=== PATIENT | female | born 2000 | race Caucasian/White ===

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

== ENCOUNTER 2018-08-12 05:32 | Emergency (ER) | payer SELFPAY ==
[~2018-08-12] VITALS: Ht 157.5 cm; Wt 62.7 kg
[2018-08-12 06:00] LABS: URINE BILIRUBIN - DIPSTICK NEGATIVE (NEGATIVE); URINE BLOOD DIPSTICK TRACE-INTACT (NEGATIVE); URINE COLOR YELLOW; URINE GLUCOSE - DIPSTICK NEGATIVE (NEGATIVE); URINE KETONE NEGATIVE (NEGATIVE); URINE LEUK ESTERASE NEGATIVE (NEGATIVE); URINE NITRITE - DIPSTICK NEGATIVE (Negative); URINE PROTEIN - DIPSTICK NEGATIVE (NEG-TRACE); URINE SPECIFIC GRAVITY >=1.030; URINE UROBILINOGEN - DIPSTICK 0.2 E.U./dL (0.2)
[2018-08-12 06:01] LABS: HEMATOCRIT 40.3 % (37.0-47.0); HEMOGLOBIN 13.3 g/dl (12.0-16.0); IMMATURE GRANULOCYTES 1.6 % (0.0-5.0); MEAN CELL VOLUME 92.6 fL CALC (80.0-100.0); MEAN CORPUSCULAR HGB 30.6 pG CALC (26.0-32.0); NEUT# 5.69 thou/uL (2.00-7.15); RED BLOOD COUNT 4.35 mill/uL (4.20-5.60); RED CELL DISTRI WIDTH 12.5 % (11.5-15.5)
[2018-08-12 06:02] LABS: URINE CLARITY SL CLOUDY
[2018-08-12 06:11] LABS: ALBUMIN 4.5 g/dL (3.2-5.0); ALKALINE PHOSPHATASE 91 u/l (38-126); AMYLASE 65 u/l (30-110); ANION GAP 12 (6-22 (CALC)); BILIRUBIN, TOTAL 0.8 mg/dL (0.0-1.4); BUN 10 mg/dL (7-17); BUN/CREATININE RATIO 14 (12-20 (CALC)); CARBON DIOXIDE 28 mmol/l (22-30); CHLORIDE 105 mmol/l (95-108); CREATININE 0.7 mg/dL (0.5-1.0); GFR > 60 ML/MIN (>=60 (CALC)); GFR FOR AFR.AMER. > 60 ML/MIN (>=60 (CALC)); LIPASE 45 u/l (23-300); POTASSIUM 4.4 mmol/l (3.5-5.1); SGOT/AST 24 u/l (14-36); SODIUM 140 mmol/l (137-146); TOTAL PROTEIN 7.9 g/dL (6.3-8.2)
[2018-08-12] MEDS ORDERED: ONDANSETRON4 MG PO (07:01)
[2018-08-12] MEDS ORDERED: BENTYL10 MG PO (07:01)
[2018-08-12] MEDS ORDERED: PROTONIX40 M2 PO (07:01)
[2018-08-12 07:06] VITALS: BP 110/67
== END 2018-08-12 07:10 | disposition home or self-care (01) | DRG 392 ==
LOC: ED 05:32
PROVIDERS: Family Medicine
DX: R10.11 Right upper quadrant pain (principal); R11.0 Nausea

== ENCOUNTER 2020-03-11 07:09 | Emergency (ER) | payer SELFPAY ==
[~2020-03-11] VITALS: Ht 157.5 cm; Wt 68.0 kg
[~2020-03-11 07:09] MED LIST changes: +BENTYL10 MG PO; +PROTONIX40 M2 PO
[2020-03-11 07:48] LABS: HEMATOCRIT 40.3 % (37.0-47.0); HEMOGLOBIN 13.3 g/dl (12.0-16.0); IMMATURE GRANULOCYTES 0.6 % (0.0-5.0); MEAN CELL VOLUME 91.2 fL CALC (80.0-100.0); MEAN CORPUSCULAR HGB 30.1 pG CALC (26.0-32.0); NEUT# 5.36 thou/uL (2.00-7.15); RED BLOOD COUNT 4.42 mill/uL (4.20-5.60); RED CELL DISTRI WIDTH 12.7 % (11.5-15.5)
[2020-03-11 08:12] LABS: ALBUMIN 4.9 g/dL (3.2-5.0); ALKALINE PHOSPHATASE 63 u/l (38-126); AMYLASE 52 u/l (30-110); ANION GAP 13 (6-22 (CALC)); BUN 10 mg/dL (7-17); BUN/CREATININE RATIO 15 (12-20 (CALC)); CARBON DIOXIDE 24 mmol/l (22-30); CHLORIDE 103 mmol/l (95-108); CREATININE 0.7 mg/dL (0.5-1.0); GFR > 60 ML/MIN (>=60 (CALC)); GFR FOR AFR.AMER. > 60 ML/MIN (>=60 (CALC)); LIPASE 64 u/l (23-300); POTASSIUM 4.1 mmol/l (3.5-5.1); SGOT/AST 18 u/l (14-36); SODIUM 135 mmol/l (137-146); TOTAL PROTEIN 7.5 g/dL (6.3-8.2)
[2020-03-11 08:14] LABS: BILIRUBIN, TOTAL 0.4 mg/dL (0.0-1.4)
[2020-03-11 09:00] LABS: BETA-HCG, QUANT(RESULT NUMBER) 25364 mIU/mL
[2020-03-11 09:10] LABS: URINE BILIRUBIN - DIPSTICK NEGATIVE (NEGATIVE); URINE BLOOD DIPSTICK NEGATIVE (NEGATIVE); URINE COLOR YELLOW; URINE GLUCOSE - DIPSTICK NEGATIVE (NEGATIVE); URINE KETONE NEGATIVE (NEGATIVE); URINE LEUK ESTERASE NEGATIVE (NEGATIVE); URINE NITRITE - DIPSTICK NEGATIVE (Negative); URINE PROTEIN - DIPSTICK NEGATIVE (NEG-TRACE); URINE SPECIFIC GRAVITY 1.025; URINE UROBILINOGEN - DIPSTICK 0.2 E.U./dL (0.2)
[2020-03-11] MEDS ORDERED: ONDANSETRON4 MG PO (09:13)
[2020-03-11 09:20] VITALS: BP 134/84
== END 2020-03-11 09:35 | disposition home or self-care (01) | DRG 833 ==
LOC: ED 07:09
PROVIDERS: Emergency Medicine
DX: O21.9 Vomiting of pregnancy, unspecified (principal); Z3A.00 Weeks of gestation of pregnancy not specified

== ENCOUNTER 2020-08-09 13:54 | Emergency (ER) | payer SELFPAY ==
[~2020-08-09] VITALS: Ht 157.5 cm; Wt 160.0 kg
[2020-08-09] MEDS ORDERED: PNV PO (14:06)
[2020-08-09 14:42] LABS: HEMATOCRIT 37.1 % (37.0-47.0); HEMOGLOBIN 12.4 g/dl (12.0-16.0); IMMATURE GRANULOCYTES 0.8 % (0.0-5.0); MEAN CELL VOLUME 91.8 fL CALC (80.0-100.0); MEAN CORPUSCULAR HGB 30.7 pG CALC (26.0-32.0); MEAN CORPUSCULAR HGB CONC 33.4 g/dL CAL (32.0-36.0); NEUT# 8.89 thou/uL (2.00-7.15); RED BLOOD COUNT 4.04 mill/uL (4.20-5.60); RED CELL DISTRI WIDTH 12.5 % (11.5-15.5)
[2020-08-09 15:03] LABS: ANION GAP 10 (6-22 (CALC)); BUN 7 mg/dL (7-17); BUN/CREATININE RATIO 13 (12-20 (CALC)); CARBON DIOXIDE 20 mmol/l (22-30); CHLORIDE 105 mmol/l (95-108); CREATININE 0.5 mg/dL (0.5-1.0); GFR > 60 ML/MIN (>=60 (CALC)); GFR FOR AFR.AMER. > 60 ML/MIN (>=60 (CALC)); POTASSIUM 3.7 mmol/l (3.5-5.1); SODIUM 132 mmol/l (137-146)
[2020-08-09 15:53] LABS: URINE BILIRUBIN - DIPSTICK NEGATIVE (NEGATIVE); URINE BLOOD DIPSTICK MODERATE (NEGATIVE); URINE COLOR YELLOW; URINE GLUCOSE - DIPSTICK NEGATIVE (NEGATIVE); URINE KETONE NEGATIVE (NEGATIVE); URINE LEUK ESTERASE NEGATIVE (NEGATIVE); URINE NITRITE - DIPSTICK NEGATIVE (Negative); URINE PROTEIN - DIPSTICK NEGATIVE (NEG-TRACE); URINE SPECIFIC GRAVITY 1.015; URINE UROBILINOGEN - DIPSTICK 0.2 E.U./dL (0.2)
[2020-08-09 16:09] LABS: URINE SQUAMOUS EPITHELIAL CELL FEW EPI/hpf (0-FEW); URINE WBC 0-2 WBC/hpf (0-5)
[2020-08-09 16:23] VITALS: BP 110/68
== END 2020-08-09 16:30 | disposition home or self-care (01) | DRG 833 ==
LOC: ED 13:54
PROVIDERS: Family Medicine
DX: O26.893 Other specified pregnancy related conditions, third trimester (principal); R55 Syncope and collapse; R51.9 Headache, unspecified; O9A.213 Injury, poisoning and certain other consequences of external causes complicating pregnancy, third trimester; S00.03XA Contusion of scalp, initial encounter; S00.81XA Abrasion of other part of head, initial encounter; W18.39XA Other fall on same level, initial encounter; O99.333 Smoking (tobacco) complicating pregnancy, third trimester; F17.200 Nicotine dependence, unspecified, uncomplicated; Z3A.28 28 weeks gestation of pregnancy

== ENCOUNTER 2023-03-11 17:13 | Emergency (ER) | payer MEDICAID ==
[~2023-03-11] VITALS: Ht 157.5 cm; Wt 72.0 kg
[~2023-03-11 17:13] MED LIST changes: +PNV PO
[2023-03-11 18:13] VITALS: BP 124/86
[2023-03-11] MEDS ORDERED: FAMOTIDINE20 M3 PO (18:21)
[2023-03-11] MEDS ORDERED: PREDNISONE20 MG PO (18:21)
[2023-03-11] MEDS ORDERED: EPIPEN 2-P0.3 MG/0.3 SC (18:25)
[2023-03-11 18:33] VITALS: BP 131/76
[2023-03-11 18:34] VITALS: BP 131/76
== END 2023-03-11 18:35 | disposition home or self-care (01) ==
LOC: ED 17:13
DX: T78.40XA Allergy, unspecified, initial encounter (principal); X58.XXXA Exposure to other specified factors, initial encounter

== ENCOUNTER 2024-07-31 17:58 | Emergency (ER) | payer OTHER ==
[~2024-07-31] VITALS: Ht 157.5 cm; Wt 81.6 kg
[~2024-07-31 17:58] MED LIST changes: +EPIPEN 2-P0.3 MG/0.3 SC; +FAMOTIDINE20 M3 PO; +PREDNISONE20 MG PO
[2024-07-31 18:13] VITALS: BP 127/77
[2024-07-31] MEDS ORDERED: ISOVUE-300 (Iopamidol) 100 ML SDV IV ONE (18:20)
[2024-07-31] MEDS ORDERED: MORPHINE SULFATE 4 MG/ML VIAL IV ONE (18:25)
[2024-07-31] MEDS ORDERED: ONDANSETRON HCl 4 MG/2 ML SDV IV ONE (18:25)
[2024-07-31 18:36] LABS: BASO% 0.4 % (0-3); EOS% 0.6 % (0-8); HEMATOCRIT 38.8 % (37.0-47.0); HEMOGLOBIN 12.6 g/dl (12.0-16.0); IMMATURE GRANULOCYTES 0.2 % (0.0-5.0); MEAN CELL VOLUME 90.7 fL CALC (80.0-100.0); MEAN CORPUSCULAR HGB 29.4 pG CALC (26.0-32.0); MEAN CORPUSCULAR HGB CONC 32.5 g/dL CAL (32.0-36.0); MONO% 6.6 % (2-13); NEUT# 6.52 thou/uL (2.00-7.15); NEUT% 69.2 % (42-76); RED BLOOD COUNT 4.28 mill/uL (4.20-5.60); RED CELL DISTRI WIDTH 12.7 % (11.5-15.5)
[2024-07-31 18:37] LABS: URINE BILIRUBIN - DIPSTICK Negative (NEGATIVE); URINE BLOOD DIPSTICK Small (NEGATIVE); URINE COLOR Yellow; URINE GLUCOSE - DIPSTICK Negative (NEGATIVE); URINE KETONE Negative (NEGATIVE); URINE LEUK ESTERASE Negative (NEGATIVE); URINE NITRITE - DIPSTICK Negative (Negative); URINE PROTEIN - DIPSTICK Negative (NEG-TRACE); URINE SPECIFIC GRAVITY >=1.030
[2024-07-31 18:39] VITALS: BP 126/70
[2024-07-31 18:43] LABS: URINE SQUAMOUS EPITHELIAL CELL FEW EPI/hpf (0-FEW); URINE WBC 0-2 WBC/hpf (0-5)
[2024-07-31 18:46] LABS: URINE BACTERIA RARE hpf
[2024-07-31 18:47] LABS: ALBUMIN 4.6 g/dL (3.2-5.0); ALKALINE PHOSPHATASE 81 u/l (38-126); BILIRUBIN, TOTAL 0.3 mg/dL (0.02-1.3); BUN 19 mg/dL (7-17); BUN/CREATININE RATIO 20 (12-20 (CALC)); CARBON DIOXIDE 24 mmol/l (22-30); CHLORIDE 104 mmol/l (95-108); CREATININE 0.9 mg/dL (0.5-1.0); ESTIMATED GFR 90 ML/MIN (>=90 (CALC)); LIPASE 62 u/l (23-300); POTASSIUM 3.6 mmol/l (3.5-5.1); SGOT/AST 28 u/l (14-36); TOTAL PROTEIN 7.7 g/dL (6.3-8.2)
[2024-07-31 18:53] LABS: ANION GAP 16 (6-22 (CALC)); SODIUM 140 mmol/l (137-146)
[2024-07-31 19:00] VITALS: BP 121/72
[2024-07-31 20:00] VITALS: BP 108/59
[2024-07-31] MEDS ORDERED: DICYCLOMINE HYD10 MG PO (20:20)
[2024-07-31 20:23] VITALS: BP 108/59
== END 2024-07-31 20:30 | disposition home or self-care (01) | DRG 392 ==
LOC: ED 17:58
PROVIDERS: Nurse Practitioner Family
DX: R10.11 Right upper quadrant pain (principal); R10.31 Right lower quadrant pain
CPT/HCPCS: Q9967

== ENCOUNTER 2024-09-06 11:41 | Emergency (ER) | payer OTHER ==
[~2024-09-06] VITALS: Ht 157.5 cm; Wt 81.6 kg
[~2024-09-06 11:41] MED LIST changes: +DICYCLOMINE HYD10 MG PO
[2024-09-06] MEDS ORDERED: NAPROXEN500 MG PO (12:10)
[2024-09-06] MEDS ORDERED: AMOX/K CLAV875 M1 PO (12:10)
[2024-09-06] MEDS ORDERED: KETOROLAC TROMETHAMINE 30 MG/ML SDV IM ONE (12:10)
[2024-09-06] MEDS ORDERED: TRAMADOL HYDROC50 M1 PO (12:10)
== END 2024-09-06 12:23 | disposition home or self-care (01) | DRG 159 ==
LOC: ED 11:41
DX: K08.89 Other specified disorders of teeth and supporting structures (principal)